=== PATIENT | female | born 1985 | race Two or more races ===

== ENCOUNTER 2023-01-28 15:31 | Inpatient (IN) | payer OTHER ==
[~2023-01-28] VITALS: Ht 160 cm; Wt 69.4 kg
[2023-02-06] MEDS ORDERED: PRENATABS FA T1 EACH PO (06:21)
[2023-02-06] MEDS ORDERED: IRON18 MG PO (06:21)
[2023-02-06 09:59] LABS: URINE APPEARANCE Clear; URINE BILIRRUBIN Negative (NEGATIVE); URINE BLOOD Negative; URINE COLOR Yellow; URINE GLUCOSE Negative (NEGATIVE); URINE LEUKOCYTE Negative; URINE NITRATE Negative; URINE PROTEIN Negative (NEGATIVE)
[2023-02-06 10:04] LABS: URINE BACTERIA 2230.2 uL (0.0-1933); URINE EPITHELIAL CELLS 84.6 uL (0.0-38.8); URINE RBC 6.3 uL (0.0-20.8); URINE WBC 10.6 uL (0.0-23.2)
[2023-02-06 10:32] LABS: HEMATOCRIT 36.9 % (36.0-45.00); MEAN CELL VOLUME 85.6 fL (80.00-100.00); MEAN CORPUSCULAR HEMOGLOBIN 27.9 pg (27.00-32.0); MEAN CORPUSCULAR HGB CONC 32.6 g/dl (32.0-36.0); PLATELET COUNT 251 K/uL (150-450); RED BLOOD COUNT 4.31 M/uL (4.00-6.00); RED CELL DISTRIBUTION WIDTH 17.8 % (11.5-14.5)
[2023-02-06 10:35] LABS: ALBUMIN 2.8 gm/dL (3.4-5.0); BILIRUBIN TOTAL 0.97 mg/dL (0.3-1.2); CREATININE SERUM 0.43 mg/dL (0.55-1.02); GFR 167.1; GLOBULINA 3.8 G/DL (2.4-3.5); POTASSIUM 4.01 mEq/L (3.5-5.1); TOTAL PROTEIN 6.6 gm/dL (6.4-8.2)
[2023-02-06 10:39] LABS: INR 0.96; PARTIAL THROMBOPLASTIN TIME 27.1 SECONDS (22.0-34.0); PROTHROMBIN TIME 10.1 SECONDS (9.0-11.5)
[2023-02-06 10:49] LABS: URINE EPITHELIAL CELLS 0-4 /HPF
[2023-02-06 15:37] LABS: ABG PH 7.368 (7.35-7.45)
[2023-02-06 15:38] LABS: ABG PO2 38.7 mmHg (80-100); ABG pCO2 34.8 mmHg (35-45); BASE EXCESS -4.9 mmol/l; BICARBONATE 19.6 mmol/l (23-25); Tco2 20.7 mmol/l; o2 21 %
[2023-02-06 15:40] LABS: SaO2 70.3 %
== END 2023-02-08 09:33 | disposition home or self-care (01) | DRG 807 ==
LOC: LDR 02-06 07:56 → OB/GYN 02-06 07:56 → LDR 02-06 09:24 → OB/GYN 02-06 11:52
PROVIDERS: ADMIT Obstetrics & Gynecology Maternal & Fetal Medicine; ATTEND Obstetrics & Gynecology Maternal & Fetal Medicine
PROC: 10E0XZZ Delivery of Products of Conception, External Approach (ICD-10-PCS; principal; 2023-02-06)
PROC: 0KQM0ZZ Repair Perineum Muscle, Open Approach (ICD-10-PCS; 2023-02-06)
PROC: 4A1HXCZ Monitoring of Products of Conception, Cardiac Rate, External Approach (ICD-10-PCS; 2023-02-06)
DX: O70.1 Second degree perineal laceration during delivery (principal); Z37.0 Single live birth; Z3A.38 38 weeks gestation of pregnancy; Z20.822 Contact with and (suspected) exposure to COVID-19

== ENCOUNTER 2023-02-06 05:49 | Outpatient (CLI) | payer OTHER ==
[~2023-02-06] VITALS: Ht 160 cm; Wt 69.4 kg
[2023-02-06] MEDS ORDERED: IRON18 MG PO (06:21)
[2023-02-06] MEDS ORDERED: PRENATABS FA T1 EACH PO (06:21)
== END 2023-02-06 07:53 | disposition still patient (30) ==
LOC: OBS/DEL 05:49
PROVIDERS: ATTEND Obstetrics & Gynecology Maternal & Fetal Medicine
DX: O26.893 Other specified pregnancy related conditions, third trimester (principal); R10.2 Pelvic and perineal pain; Z3A.38 38 weeks gestation of pregnancy